=== PATIENT | female | born 1995 | race Caucasian/White ===

== ENCOUNTER → 2021-01-22 | Outpatient (REF) | payer OTHER | LOC: M SFHCWAGY 12:55 | PROVIDERS: ATTEND Advanced Practice Midwife | DX: Z12.4 Encounter for screening for malignant neoplasm of cervix (principal) ==

== ENCOUNTER → 2021-09-03 | Outpatient (CLI) | payer OTHER ==
[~2021-09-03] MED LIST: E-Z-GAS II EFFERVESCENT PACKET (SODIUM BICARB./CITRIC ACID/SIMETHICONE) As Ordered ONE; E-Z-HD 98% w/w 340GM SUSP BTL As Ordered ONE; E-Z-PAQUE 96% w/w SUSP 176GM BTL As Ordered ONE
--- NOTE | 2021-09-03 16:37 | REP ---
INDICATION: DYSPHAGIA. COMPARISON: None. TECHNIQUE: This procedure was performed under the direct supervision of Dr. Rodríguez. Images were reviewed with Dr. Rodríguez. Liquid barium and gas producing granules were given in the erect position as well as liquid barium in the prone oblique positions in order to perform a double contrast esophagram examination. A combination of fluoroscopy, spot films and last image hold technology was utilized. 0.4 minutes of fluoro time was utilized for this procedure. FINDINGS: A single view PA chest x-ray is submitted as a obstetrics and gynecology professor film. The superior mediastinal structures are midline. The heart size is within normal limits. The lungs are clear. The oral and pharyngeal stages of deglutition are unremarkable. Esophageal transport is prompt and efficient and there is no esophagitis, stricture, mucosal ring, or hiatal hernia.Gastroesophageal reflux is not demonstrated on this examination. IMPRESSION: Essentially unremarkable double-contrast esophagram examination. <Electronically signed by Danny Caldwell > 09/03/21 1557 <Electronically signed by Roland Rodríguez > 09/03/21 [id number]
== END ==
LOC: M RAD 08:25
PROVIDERS: ATTEND Otolaryngology
DX: R13.10 Dysphagia, unspecified (principal)

== ENCOUNTER → 2021-11-20 | Outpatient (CLI) | payer OTHER ==
[~2021-11-20] MED LIST changes: -E-Z-GAS II EFFERVESCENT PACKET (SODIUM BICARB./CITRIC ACID/SIMETHICONE) As Ordered ONE; -E-Z-HD 98% w/w 340GM SUSP BTL As Ordered ONE; -E-Z-PAQUE 96% w/w SUSP 176GM BTL As Ordered ONE; +EQ A10TA2 PO; +KYLE19.5 IU; +OMEP1CAP73 PO; +[UNRECOGNIZED DRUG - CODE] PO
== END ==
LOC: M LABSMTC 10:00
PROVIDERS: ATTEND Anesthesiology
DX: Z01.812 Encounter for preprocedural laboratory examination (principal); Z20.822 Contact with and (suspected) exposure to COVID-19

== ENCOUNTER 2021-11-25 09:20 | Day surgery (SDC) | payer OTHER ==
[~2021-11-25] VITALS: Ht 170.2 cm; Wt 85.2 kg
[~2021-11-25 09:20] MED LIST changes: +LR 1,000 ML IV ONE; +dexameTHASONE 4 MG/ML 1ML VIAL (J1100 PER 1MG) IV ONE
[2021-11-25] MEDS: SODIUM CHLORIDE 0.9% NASAL GEL 15GM (AYR) As Ordered ONE ×2 (09:26→11:13)
[2021-11-25] MEDS ORDERED: METHYLENE BLUE 0.5% (5MG/ML) 10 ML AMP (PROVAYBLUE) As Ordered ONE (09:26)
[2021-11-25] MEDS ORDERED: LIDOCAINE W/EPINEPHRINE 1% 20ML VIAL As Ordered ONE (09:26)
[2021-11-25] MEDS ORDERED: EPINEPHrine 1MG/ML INJ 30ML MD-VIAL As Ordered ONE (09:26)
[2021-11-25] MEDS ORDERED: KETOROLAC 60MG 2ML VIAL As Ordered ONE (09:33)
[2021-11-25] MEDS ORDERED: SUGAMMADEX SODIUM 500 MG/5 ML VIAL (BRIDION) As Ordered ONE (09:33)
[2021-11-25] MEDS ORDERED: ROCURONIUM BROMIDE 50 MG/5 ML VIAL As Ordered ONE (09:33)
[2021-11-25] MEDS ORDERED: MIDAZOLAM INJ 2MG/2ML VIAL (J2250 PER 1MG) As Ordered ONE (09:33)
[2021-11-25] MEDS ORDERED: dexameTHASONE 4 MG/ML 1ML VIAL (J1100 PER 1MG) As Ordered ONE (09:33)
[2021-11-25] MEDS ORDERED: ONDANSETRON 4MG/2ML VIAL As Ordered ONE ×2 (09:33→11:40)
[2021-11-25] MEDS ORDERED: fentaNYL 100 MCG/2 ML INJECTION As Ordered ONE (09:33)
[2021-11-25] MEDS ORDERED: propofoL 200 MG/20 ML VIAL As Ordered ONE (09:33)
[2021-11-25] MEDS ORDERED: LIDOCAINE 2% 100MG/5ML SDV (FOR ANES.) As Ordered ONE (09:33)
[2021-11-25] MEDS ORDERED: METOCLOPRAMIDE INJ 10MG/2ML VIAL (J2765 PER 1) As Ordered ONE (09:33)
[2021-11-25] MEDS ORDERED: LABETALOL 100MG/20ML VIAL As Ordered ONE (10:49)
[2021-11-25] MEDS ORDERED: HYDROMORPHONE HCL 0.5 MG/ 0.5 ML SYRINGE (J1170 PER 1) IV PRN (11:45)
[2021-11-25] MEDS ORDERED: fentaNYL 100 MCG/2 ML INJECTION IV PRN (11:45)
[2021-11-25] MEDS ORDERED: ONDANSETRON 4MG/2ML VIAL IV PRN (11:45)
[2021-11-25] MEDS ORDERED: LR 1,000 ML IV SCH ×2 (11:45)
[2021-11-25] MEDS: oxyCODONE 5MG TAB PO PRN ×2 (11:47→12:22)
[2021-11-25 12:11] VITALS: BP 122/75
== END 2021-11-25 13:07 | disposition home or self-care (01) ==
LOC: M SDC 09:20
PROVIDERS: ATTEND Otolaryngology
DX: J34.2 Deviated nasal septum (principal); Z79.899 Other long term (current) drug therapy
CPT/HCPCS: 30520; 81025; 88300; J1100; J1885; J2250; J2405; J2765; J3010; Q9968

== ENCOUNTER → 2022-09-08 | Outpatient (CLI) | payer BC ==
[~2022-09-08] MED LIST changes: +AMPH10TA PO; -LR 1,000 ML IV ONE; -[UNRECOGNIZED DRUG - CODE] PO; -dexameTHASONE 4 MG/ML 1ML VIAL (J1100 PER 1MG) IV ONE
[2022-09-08 18:48] LABS: HEMATOCRIT 39.1 % (36.0-47.0); HEMOGLOBIN 12.9 g/dl (12.0-15.5); MEAN CORPUSCULAR HEMOGLOBIN 29.4 pg (27.0-33.0); MEAN CORPUSCULAR VOLUME 89.1 fl (80.0-96.0); PLATELET COUNT, AUTOMATED 263 10^3/uL (150-450); RED BLOOD COUNT 4.39 10^6/uL (4.00-5.40); WHITE BLOOD COUNT 12.1 10^3/uL (4.0-10.0)
[2022-09-08 19:37] LABS: HIV 1&2 SCREEN CENTAUR NEGATIVE (NEGATIVE)
[2022-09-08 21:32] LABS: GC DNA AMPLIFICATION NEGATIVE (NEGATIVE)
== END ==
LOC: M PLALAB 14:59
PROVIDERS: ATTEND Advanced Practice Midwife
DX: Z36.9 Encounter for antenatal screening, unspecified (principal)

== ENCOUNTER → 2022-10-07 | Outpatient (REF) | payer BC | LOC: M PLALAB 15:39 | PROVIDERS: ATTEND Advanced Practice Midwife | DX: Z34.02 Encounter for supervision of normal first pregnancy, second trimester (principal) ==

== ENCOUNTER → 2022-11-27 | Outpatient (CLI) | payer BC | LOC: M WHC 10:25 | PROVIDERS: ATTEND Advanced Practice Midwife | DX: Z34.02 Encounter for supervision of normal first pregnancy, second trimester (principal); Z3A.21 21 weeks gestation of pregnancy ==

== ENCOUNTER → 2022-12-24 | Outpatient (CLI) | payer BC | LOC: M WHC 08:40 | PROVIDERS: ATTEND Advanced Practice Midwife | DX: Z34.02 Encounter for supervision of normal first pregnancy, second trimester (principal) ==

== ENCOUNTER → 2022-12-24 | Outpatient (CLI) | payer BC ==
[2022-12-24 14:47] LABS: HEMATOCRIT 38.1 % (36.0-47.0); HEMOGLOBIN 12.2 g/dl (12.0-15.5); MEAN CORPUSCULAR HEMOGLOBIN 29.4 pg (27.0-33.0); MEAN CORPUSCULAR VOLUME 91.8 fl (80.0-96.0); PLATELET COUNT, AUTOMATED 263 10^3/uL (150-450); RED BLOOD COUNT 4.15 10^6/uL (4.00-5.40); WHITE BLOOD COUNT 12.7 10^3/uL (4.0-10.0)
== END ==
LOC: M PLALAB 08:49
PROVIDERS: ATTEND Advanced Practice Midwife
DX: Z34.92 Encounter for supervision of normal pregnancy, unspecified, second trimester (principal)

== ENCOUNTER → 2023-03-12 | Outpatient (REF) | payer BC | LOC: M PLALAB 08:53 | PROVIDERS: ATTEND Obstetrics & Gynecology | DX: Z36.85 Encounter for antenatal screening for Streptococcus B (principal) ==

== ENCOUNTER 2023-03-31 11:20 | Inpatient (IN) | payer BC ==
[~2023-03-31] VITALS: Ht 170.2 cm; Wt 101.5 kg
[2023-03-31] MEDS ORDERED: TRANEXAMIC ACID INJection 1,000 MG in NS 100 ML IV PRN (11:35)
[2023-03-31] MEDS ORDERED: METHYLERGONOVINE MALEATE 0.2MG/ML 1ML VIAL IM PRN (11:35)
[2023-03-31] MEDS ORDERED: OXYTOCIN DRIP 30 UNITS in IV 1 EA IV PRN ×4 (11:35)
[2023-03-31] MEDS ORDERED: OXYTOCIN INJ 10UNITS/ML 1ML VIAL IM PRN (11:35)
[2023-03-31] MEDS ORDERED: LIDOCAINE 1% MDV 20ML VIAL INFIL PRN (11:35)
[2023-03-31] MEDS ORDERED: CARBOPROST TROMETHAMINE 250 MCG/ML AMP IM PRN (11:35)
[2023-03-31 11:57] VITALS: BP 136/87; TEMP 98.5
[2023-03-31] MEDS: miSOPROStol 50MCG 1/2 TABLET PO SCH ×3 (12:54→21:04)
[2023-03-31 13:06] LABS: HEMATOCRIT 36.6 % (36.0-47.0); MEAN CORPUSCULAR HEMOGLOBIN 29.3 pg (27.0-33.0); MEAN CORPUSCULAR HGB CONC 32.8 g/dl (32.0-36.5); MEAN CORPUSCULAR VOLUME 89.5 fl (80.0-96.0); PLATELET COUNT, AUTOMATED 243 10^3/uL (150-450); RED BLOOD COUNT 4.09 10^6/uL (4.00-5.40); WHITE BLOOD COUNT 13.4 10^3/uL (4.0-10.0)
[2023-03-31] MEDS ORDERED: PRENTAB9 PO (13:24)
[2023-03-31] MEDS ORDERED: ACET-897 PO (13:24)
[2023-03-31] MEDS ORDERED: VALA500T5 PO (13:24)
[2023-03-31 15:14] VITALS: BP 141/90
[2023-03-31 16:05] VITALS: BP 133/68
[2023-03-31 18:01] VITALS: BP 112/65
[2023-03-31] MEDS ORDERED: HOME MED LIST COMPLETE! XX SCH (18:50)
[2023-03-31] MEDS: valACYclovir HCL 500 MG TAB PO SCH (22:01)
[2023-03-31] MEDS ORDERED: diphenhydrAMINE 50MG CAP PO STA (23:08)
[2023-04-01] VITALS (36 sets, daily range): BP systolic 83–148; BP diastolic 50–77; O2SAT 96
[2023-04-01] MEDS ORDERED: ACETAMINOPHEN 500 MG TAB PO ONE (00:55)
[2023-04-01] MEDS: miSOPROStol 50MCG 1/2 TABLET PO SCH (01:22)
[2023-04-01] MEDS ORDERED: OXYTOCIN DRIP 30 UNITS in IV 1 EA IV SCH (06:00)
[2023-04-01] MEDS: LR 1,000 ML IV SCH ×3 (08:05→13:24)
[2023-04-01] MEDS: valACYclovir HCL 500 MG TAB PO SCH ×2 (09:06→21:37)
[2023-04-01] MEDS ORDERED: FENTANYL/ROPIVACAINE/NACL BAG 100 ML EPIDURAL SCH (09:10)
[2023-04-01] MEDS ORDERED: diphenhydrAMINE 50MG/ML VIAL IV PRN (09:10)
[2023-04-01] MEDS ORDERED: EPIDURAL/PCA KEYS XX PRN (09:10)
[2023-04-01] MEDS ORDERED: ONDANSETRON 4MG 2ML VIAL IV PRN (09:10)
[2023-04-01] MEDS ORDERED: LR 500 ML IV PRN (09:10)
[2023-04-01] MEDS ORDERED: NALOXONE INJ 0.4MG/1ML VIAL IV PRN (09:10)
[2023-04-01] MEDS ORDERED: FENTANYL 2MCG/ML ROPIVACAINE 0.2% IN 0.9% NACL 100ML IVBAG As Ordered ONE (09:19)
[2023-04-01] MEDS: ePHEDrine SULFATE 25 MG/5 ML(5MG/ML) SYRINGE IVP PRN ×2 (13:11→13:17)
[2023-04-01] MEDS ORDERED: ANUSOL HC CREAM 30GM TOP PRN (20:10)
[2023-04-01] MEDS ORDERED: MOM 30ML SUSPENSION UDC PO PRN (20:10)
[2023-04-01] MEDS ORDERED: METHYLERGONOVINE MALEATE 0.2 MG TAB PO PRN (20:10)
[2023-04-01] MEDS ORDERED: RHOGAM 300MCG (1500IU) INJ IM SCH (20:10)
[2023-04-01] MEDS ORDERED: IBUPROFEN 600MG TAB PO PRN (20:10)
[2023-04-01] MEDS ORDERED: ACETAMINOPHEN TAB 650MG DOSE (2X325MG) PO PRN (20:10)
[2023-04-01] MEDS: DIBUCAINE 1% OINTMENT 30GM TOP PRN (21:37)
[2023-04-01] MEDS: ACETAMINOPHEN 500 MG TAB PO PRN (21:37)
[2023-04-01] MEDS: DOCUSATE SODIUM 100MG CAPSULE PO PRN (21:38)
[2023-04-02] MEDS: IBUPROFEN 800 MG TAB PO PRN ×3 (00:13→19:33)
[2023-04-02] MEDS: LR 1,000 ML IV SCH ×3 (06:00→22:00)
[2023-04-02 06:05] VITALS: BP 118/71; O2SAT 96
[2023-04-02] MEDS: PRENATAL VITAMINS CHEWABLE TABLET PO SCH (08:32)
[2023-04-02] MEDS: valACYclovir HCL 500 MG TAB PO SCH ×2 (08:32→21:23)
[2023-04-02] MEDS: DOCUSATE SODIUM 100MG CAPSULE PO PRN ×2 (15:17→21:23)
[2023-04-02] MEDS: ACETAMINOPHEN 500 MG TAB PO PRN (15:17)
[2023-04-03 06:00] VITALS: BP 115/61; O2SAT 99
[2023-04-03] MEDS: LR 1,000 ML IV SCH (06:00)
[2023-04-03] MEDS ORDERED: MEASLES,MUMPS,RUBELLA VACCINE INJ (MMR-II) SC.IMMUN ONE (09:00)
[2023-04-03] MEDS: valACYclovir HCL 500 MG TAB PO SCH (09:00)
[2023-04-03] MEDS: PRENATAL VITAMINS CHEWABLE TABLET PO SCH (09:51)
[2023-04-03] MEDS: IBUPROFEN 800 MG TAB PO PRN ×2 (09:52→18:17)
[2023-04-03] MEDS: DIBUCAINE 1% OINTMENT 30GM TOP PRN (10:04)
[2023-04-03] MEDS ORDERED: ACET-683 PO (10:28)
[2023-04-03] MEDS ORDERED: IBUP-1022 PO (10:28)
[2023-04-03] MEDS ORDERED: COLA100C5 PO (10:28)
[2023-04-03] MEDS: ACETAMINOPHEN 500 MG TAB PO PRN (16:03)
[2023-04-03 18:00] VITALS: BP 129/74; O2SAT 98
[2023-04-03] MEDS: DOCUSATE SODIUM 100MG CAPSULE PO PRN (18:16)
== END 2023-04-03 19:00 | disposition home or self-care (01) | DRG 560 ==
LOC: M LDI 11:20 → M OBS 04-01 18:00
PROVIDERS: ADMIT Advanced Practice Midwife; ATTEND Obstetrics & Gynecology
PROC: 3E0P7GC Introduction of Other Therapeutic Substance into Female Reproductive, Via Natural or Artificial Opening (ICD-10-PCS; 2023-03-31)
PROC: 10E0XZZ Delivery of Products of Conception, External Approach (ICD-10-PCS; principal; 2023-04-01)
PROC: 0KQM0ZZ Repair Perineum Muscle, Open Approach (ICD-10-PCS; 2023-04-01)
DX: O98.32 Other infections with a predominantly sexual mode of transmission complicating childbirth (principal); O70.1 Second degree perineal laceration during delivery; Z3A.39 39 weeks gestation of pregnancy; Z79.899 Other long term (current) drug therapy; Z37.0 Single live birth

== ENCOUNTER → 2023-05-24 | Outpatient (REF) | payer BC ==
[~2023-05-24] MED LIST changes: +ACET-683 PO; +ACET-897 PO; +COLA100C5 PO; +IBUP-1022 PO; +PRENTAB9 PO; +VALA500T5 PO
== END ==
LOC: M SFHCDERM 13:52
PROVIDERS: ATTEND Physician Assistant
DX: D48.5 Neoplasm of uncertain behavior of skin (principal); I78.1 Nevus, non-neoplastic

== ENCOUNTER → 2023-08-11 | Outpatient (REF) | payer BC | LOC: M SFHCWAGY 17:29 | PROVIDERS: ATTEND Obstetrics & Gynecology | DX: Z12.4 Encounter for screening for malignant neoplasm of cervix (principal) | CPT/HCPCS: 87624; G0123 ==

== ENCOUNTER → 2024-08-16 | Outpatient (REF) | payer BC ==
[2024-08-21 16:42] LABS: HPV APTIMA Not Detected (Not Detected)
== END ==
LOC: M PLALAB 08-15 17:21
PROVIDERS: ATTEND Obstetrics & Gynecology
DX: Z12.4 Encounter for screening for malignant neoplasm of cervix (principal)
CPT/HCPCS: 87624; G0123

== ENCOUNTER → 2024-12-19 | Outpatient (REF) | payer BC | LOC: M PLALAB 14:28 | PROVIDERS: ATTEND Obstetrics & Gynecology | DX: R30.0 Dysuria (principal) ==

== ENCOUNTER → 2024-12-22 | Outpatient (CLI) | payer BC | LOC: M WUC 11:55 | PROVIDERS: ATTEND Family Medicine | DX: R05.9 Cough, unspecified (principal) ==

== ENCOUNTER → 2025-07-19 | Outpatient (CLI) | payer BC ==
[~2025-07-19] MED LIST changes: -IBUP-1022 PO; +IBUP600T42 PO
[2025-07-19 12:53] LABS: PLATELET COUNT, AUTOMATED 242 10^3/uL (150-450)
[2025-07-19 13:48] LABS: HIV 1&2 SCREEN NEGATIVE (NEGATIVE)
[2025-07-19 13:57] LABS: HEPATITIS C VIRUS ABY INDEX 0.02 INDEX (<0.8)
[2025-07-19 15:41] LABS: GC DNA AMPLIFICATION NEGATIVE (NEGATIVE)
== END ==
LOC: M WUC 08:57
PROVIDERS: ATTEND Obstetrics & Gynecology
DX: Z34.81 Encounter for supervision of other normal pregnancy, first trimester (principal)

== ENCOUNTER 2025-08-02 14:29 | Emergency (ER) | payer BC ==
[~2025-08-02] VITALS: Ht 170.2 cm; Wt 68.5 kg
[2025-08-02 15:40] LABS: KETONE, URINE AUTO RFX NEGATIVE (NEGATIVE); LEUKOCYTE ESTERASE UR AUTO RFX NEGATIVE (NEGATIVE); NITRITE, URINE AUTO RFX NEGATIVE (NEGATIVE); RBC, URINE AUTO RFX 3 /HPF (0-3); SQUAM EPITHELIAL CELL UR AURFX 2 /HPF (0-6); WBC, URINE AUTO RFX 2 /HPF (0-3)
[2025-08-02 15:42] LABS: BASO # 0.1 10^3/uL (0.0-0.2); BASO % 0.5 % (0.0-1.0); EOS # 0.0 10^3/uL (0.0-0.5); EOS % 0.4 % (0.0-3.0); LYMPH # 2.4 10^3/uL (1.5-5.0); LYMPH % 22.3 % (24.0-44.0); MONO # 0.5 10^3/uL (0.0-0.8); MONO % 4.1 % (2.0-8.0); NEUTROPHILS # 7.9 10^3/uL (1.5-8.5); NEUTROPHILS % 72.3 % (36.0-66.0); PLATELET COUNT, AUTOMATED 252 10^3/uL (150-450)
[2025-08-02 15:54] LABS: CALCIUM LEVEL 9.1 MG/DL (8.5-10.1); CARBON DIOXIDE LEVEL 26 MMOL/L (20-31); CHLORIDE LEVEL 106 MMOL/L (98-107); CREATININE FOR GFR 0.63 MG/DL (0.55-1.30); GLOMERULAR FILTRATION RATE > 90.0 (>60); POTASSIUM SERUM 3.9 MMOL/L (3.5-5.1); SODIUM LEVEL 141 MMOL/L (136-145)
[2025-08-02 16:24] LABS: HCG, SERUM QUANTITATIVE 149398.8 MIU/ML (<4.2)
[2025-08-02 16:45] VITALS: BP 113/72; TEMP 97.4; O2SAT 100
== END 2025-08-02 16:52 | disposition home or self-care (01) ==
LOC: M ED 14:29
DX: O20.8 Other hemorrhage in early pregnancy (principal); O43.891 Other placental disorders, first trimester; Z3A.12 12 weeks gestation of pregnancy; Z79.1 Long term (current) use of non-steroidal anti-inflammatories (NSAID); Z79.899 Other long term (current) drug therapy; Z79.810 Long term (current) use of selective estrogen receptor modulators (SERMs)

== ENCOUNTER → 2025-09-26 | Outpatient (CLI) | payer BC | LOC: M WHC 15:11 | PROVIDERS: ATTEND Student in an Organized Health Care Education/Training Program | DX: Z34.80 Encounter for supervision of other normal pregnancy, unspecified trimester (principal) ==

== ENCOUNTER → 2025-10-10 | Outpatient (CLI) | payer BC | LOC: M WHC 11:09 | PROVIDERS: ATTEND Nurse Practitioner Family | DX: Z34.82 Encounter for supervision of other normal pregnancy, second trimester (principal) ==